=== PATIENT | female | born 1940 | race Asian ===

== ENCOUNTER 2019-08-30 19:52 | Emergency (ER) | payer OTHER ==
[~2019-08-30] VITALS: Ht 170.2 cm; Wt 70.3 kg
[2019-08-30 20:04] VITALS: Ht 170.2 cm; Wt 70.3 kg
[2019-08-30 20:38] LABS: BASOPHIL % 0.2 % (0-2); PLATELET COUNT 162 x10^3mcL (130-400)
[2019-08-30 20:39] LABS: RED CELL DISTRIBUTION WIDTH 14.7 % (11.5-14.5)
[2019-08-30 20:48] LABS: CARBON DIOXIDE 28.3 mmol/L (21-32); CHLORIDE SERUM 102 mmol/L (98-107); CREATININE SERUM 0.8 mg/dL (0.6-1.0); GLUCOSE SERUM 134 mg/dL (74-106); POTASSIUM SERUM 3.5 mmol/L (3.5-5.1); SODIUM SERUM 135 mmol/L (136-145)
[2019-08-30 20:54] LABS: ALBUMIN 3.5 g/dL (3.4-5.0); ALKALINE PHOSPHATASE 39 U/L (46-116); ALT/SGPT 20 U/L (14-59); AST/SGOT 14 U/L (15-37); BILIRUBIN TOTAL 0.4 mg/dL (0.20-1.00)
[2019-08-30 21:12] LABS: microscopic required? YES; urine erythrocyte TRACE (NEGATIVE)
[2019-08-30 23:18] VITALS: BP 153/64
== END 2019-08-30 23:18 | disposition home or self-care (01) ==
LOC: ED 19:52
PROVIDERS: Emergency Medicine
DX: R53.81 Other malaise (principal); R07.89 Other chest pain; R05 Cough; R53.1 Weakness; R63.0 Anorexia; R11.0 Nausea; R42 Dizziness and giddiness; I10 Essential (primary) hypertension
CPT/HCPCS: 36415; 83880; 87804; J7030